=== PATIENT | female | born 1970 | race Caucasian/White ===

== ENCOUNTER 2016-12-08 19:49 | Emergency (ER) | payer OTHER ==
[~2016-12-08] VITALS: Ht 147.3 cm; Wt 67.0 kg
[2016-12-08] MEDS ORDERED: FLEXERIL10 MG PO (20:10)
[2016-12-08] MEDS ORDERED: ZOLOFT50 MG PO (20:10)
[2016-12-08] MEDS ORDERED: CELEBREX100 MG PO (20:11)
[2016-12-08 20:49] LABS: HEMATOCRIT 40.9 % (36.0-46.0); MCH 31.1 PG (29.0-34.0); MCHC 33.5 G/DL (30.0-36.0); MEAN PLAT.VOLUME 9.8 uM^3 (9.5-12.4); PLATELET COUNT 282 K/uL (156-360); RBC DIS.WIDTH-CV 13.2 % (11.8-14.6)
[2016-12-08 21:03] LABS: ANION GAP 11 MEQ/L (2-14); CHLORIDE 106 MEQ/L (99-109); POTASSIUM 3.6 MEQ/L (3.7-5.4); SAMPLE HEMOLYSIS CHECK 0; SAMPLE ICTERIC CHECK 0; SAMPLE LIPEMIA CHECK 0; SODIUM 143 MEQ/L (136-147)
[2016-12-08 21:09] LABS: GFR ESTIMATE (CALCULATED) > 59 mL/min/; GLUCOSE 101 mg/dL (70-99); SERUM ETHYL ALCOHOL 278 mg/dL; UREA NITROGEN (BUN) 19 mg/dL (9-23)
[2016-12-08 21:34] LABS: QUANTITATIVE HCG < 4.0 MIU/ML
[2016-12-08 21:50] VITALS: BP 156/92
== END 2016-12-08 22:45 | disposition home or self-care (01) ==
LOC: EME 19:49
PROVIDERS: Emergency Medicine
DX: F32.9 Major depressive disorder, single episode, unspecified (principal); F10.129 Alcohol abuse with intoxication, unspecified; Y90.8 Blood alcohol level of 240 mg/100 ml or more; M32.9 Systemic lupus erythematosus, unspecified; Z88.2 Allergy status to sulfonamides; Z87.891 Personal history of nicotine dependence
CPT/HCPCS: 80048; 84702; 85027; 90839; 99281; 99284; G0480